=== PATIENT | female | born 1990 | race Caucasian/White ===

== ENCOUNTER 2024-09-29 15:10 | Emergency (ER) | payer MEDICAID, OTHER ==
[~2024-09-29] VITALS: Ht 167.6 cm; Wt 75.0 kg
[2024-09-29 15:11] VITALS: BP 138/92; PULSE 90; RESP 16; TEMP 37; O2SAT 100
[2024-09-29] MEDS ORDERED: IBUP-2029 MT (20:28)
[2024-09-29] MEDS: HYDROCODONE/ACETAMINOPHEN 10/325MG TABLET PO ONE (20:46)
[2024-09-29] MEDS: LIDOCAINE HCL 1% 20ML VIAL INFIL ONE (21:06)
[2024-09-29] MEDS: BACITRACIN ZINC OINT UDPKT TOP ONE (21:06)
[2024-09-29] MEDS: LIDOCAINE HCL/PF 1% 10 MG/ML 5ML VIAL INFIL ONE (21:06)
== END 2024-09-29 22:11 | disposition home or self-care (01) ==
LOC: ER 15:10
DX: S02.2XXA Fracture of nasal bones, initial encounter for closed fracture (principal); S01.511A Laceration without foreign body of lip, initial encounter; Y04.0XXA Assault by unarmed brawl or fight, initial encounter; Y93.89 Activity, other specified; Y92.89 Other specified places as the place of occurrence of the external cause; Y99.8 Other external cause status
CPT/HCPCS: 40650; 99284; 70486; J3490; J2003